=== PATIENT | female | born 1970 | race African-American/Black ===

== ENCOUNTER 2019-02-05 09:45 | Emergency (ER) | payer OTHER ==
[~2019-02-05] VITALS: Ht 167.6 cm; Wt 118.0 kg
[2019-02-05] MEDS ORDERED: MORPHINE SULFATE 4 MG/ML CPJ (NOT FOR IM USE) IV STA (11:03)
[2019-02-05] MEDS ORDERED: ONDANSETRON HCL 4MG/2ML INJ IV STA (11:03)
[2019-02-05] MEDS ORDERED: SODIUM CHLORIDE 0.9% 1,000 ML IV ONE (14:20)
[2019-02-05 14:35] LABS: BASOPHILS % 0.1 % (0.0-2.0); EOSINOPHILS % 0.1 % (0.0-5.0); HEMATOCRIT. 23.8 % (36.0-48.0); HEMOGLOBIN. 7.8 g/dL (12.0-16.0); LYMPHOCYTES % 9.3 % (20.0-50.0); MEAN CORPUSCULAR HEMOGLOBIN 29.6 pg (28.0-32.0); MONOCYTES % 6.4 % (2.0-8.0); NEUTROPHILS % 84.1 % (40.0-76.0); PLATELET 333 x1000/uL (130-400); RED BLOOD CELL COUNT 2.64 mill/uL (4.2-5.4); RED CELL DISTRIBUTION WIDTH 21.9 % (11.6-14.6)
[2019-02-05 14:38] LABS: INR 1.1; PROTHROMBIN TIME 11.4 sec (9.6-11.0)
[2019-02-05 14:39] LABS: CHLORIDE 101 mEq/L (98-107)
[2019-02-05 14:41] LABS: HCG SCREEN NEGATIVE
[2019-02-05 14:51] LABS: CLARITY URINE CLOUDY (CLEAR); COLOR URINE YELLOW (YELLOW); KETONES URINE NEGATIVE (NEGATIVE); LEUKOCYTE ESTERASE URINE 3+ (NEGATIVE); NITRITE URINE NEGATIVE (NEGATIVE); OCCULT BLOOD URINE 1+ (NEGATIVE); PROTEIN URINE 1+ (NEGATIVE); SPECIFIC GRAVITY URINE 1.014 (1.005-1.030)
[2019-02-05] MEDS ORDERED: CEFTRIAXONE 1 G PREMIX 50 ML IV ONE (15:15)
[2019-02-05] MEDS ORDERED: MORPHINE SULFATE 4 MG/ML CPJ (NOT FOR IM USE) IV NR (15:45)
[2019-02-05] MEDS ORDERED: KETOROLAC 30MG/ML VIAL IV ONE (18:30)
[2019-02-05 19:15] VITALS: BP 110/53
== END 2019-02-05 19:30 | disposition home or self-care (01) ==
LOC: ER 09:45
DX: R10.11 Right upper quadrant pain (principal); R11.0 Nausea; R06.02 Shortness of breath
CPT/HCPCS: 36415; 74176; 76705; 80053; 81003; 81025; 83690; 84703; 85025; 85610; 87086; 96365; 96375; 99284; J0696; J1885; J2270; J7030; Z7610

== ENCOUNTER 2019-02-08 21:14 | Inpatient (IN) | payer OTHER ==
[~2019-02-08] VITALS: Ht 167.6 cm; Wt 158.8 kg
[2019-02-08] MEDS ORDERED: ONDANSETRON HCL 4MG/2ML INJ IV STA (22:57)
[2019-02-08] MEDS ORDERED: VISCOUS LIDOCAINE 2% 15 ML UDC PO STA (22:57)
[2019-02-08] MEDS ORDERED: MAGNESIUM/ALUMINUM HYDROXIDE/SIMETHICONE 30ML UDC PO STA (22:57)
[2019-02-08 23:51] LABS: CHLORIDE 102 mEq/L (98-107)
[2019-02-08 23:57] LABS: BASOPHILS % 0.3 % (0.0-2.0); EOSINOPHILS % 0.3 % (0.0-5.0); HEMATOCRIT. 22.9 % (36.0-48.0); HEMOGLOBIN. 7.5 g/dL (12.0-16.0); LYMPHOCYTES % 17.7 % (20.0-50.0); MEAN CORPUSCULAR HEMOGLOBIN 29.2 pg (28.0-32.0); MEAN CORPUSCULAR VOLUME 89.2 fL (81.0-99.0); MONOCYTES % 7.8 % (2.0-8.0); NEUTROPHILS % 73.9 % (40.0-76.0); PLATELET 381 x1000/uL (130-400); RED BLOOD CELL COUNT 2.57 mill/uL (4.2-5.4); RED CELL DISTRIBUTION WIDTH 21.7 % (11.6-14.6)
[2019-02-09] MEDS ORDERED: SODIUM CHLORIDE 0.9% 1,000 ML IV ONE (00:15)
[2019-02-09] MEDS ORDERED: ACETAMINOPHEN 500MG TABLET PO ONE (02:00)
[2019-02-09] MEDS: SODIUM CHLORIDE 0.9% 1,000 ML IV SCH ×2 (08:45→21:24)
[2019-02-09] MEDS ORDERED: CEFTRIAXONE 1 G PREMIX 50 ML IV SCH (09:00)
[2019-02-09] MEDS: ACETAMINOPHEN 325MG TABLET PO PRN ×2 (09:45→14:20)
[2019-02-09] MEDS: ONDANSETRON HCL 4MG/2ML INJ IV PRN (09:45)
[2019-02-09 10:00] LABS: CLARITY URINE CLOUDY (CLEAR); COLOR URINE RED (YELLOW); KETONES URINE NEGATIVE (NEGATIVE); LEUKOCYTE ESTERASE URINE 2+ (NEGATIVE); NITRITE URINE NEGATIVE (NEGATIVE); OCCULT BLOOD URINE 3+ (NEGATIVE); PH URINE 5.5 (4.5-8.0); PROTEIN URINE 2+ (NEGATIVE); SPECIFIC GRAVITY URINE 1.013 (1.005-1.030); UROBILINOGEN URINE 0.2 E.U./dL (0.2-1.0)
[2019-02-09 10:30] VITALS: BP 141/85
[2019-02-09 11:30] LABS: TOTAL IRON BINDING CAPACITY 185 ug/dL (250-450)
[2019-02-09 12:00] VITALS: BP 124/69
[2019-02-09 15:37] VITALS: BP 141/84
[2019-02-09 16:00] VITALS: BP 138/87
[2019-02-09] MEDS ORDERED: TRAM150C25 PO (18:47)
[2019-02-09] MEDS ORDERED: CIPR500S3 PO (18:47)
[2019-02-09] MEDS ORDERED: IBUP-2028 MT (18:47)
[2019-02-09 20:00] VITALS: BP 112/78
[2019-02-10] VITALS: BP 128/77
[2019-02-10 04:00] VITALS: BP 128/62
[2019-02-10] MEDS: ACETAMINOPHEN 325MG TABLET PO PRN ×3 (04:31→19:31)
[2019-02-10 08:00] VITALS: BP 149/90
[2019-02-10 08:14] LABS: BASOPHILS % 0.5 % (0.0-2.0); EOSINOPHILS % 0.4 % (0.0-5.0); HEMATOCRIT. 21.4 % (36.0-48.0); LYMPHOCYTES % 25.7 % (20.0-50.0); MEAN CORPUSCULAR HEMOGLOBIN 29.5 pg (28.0-32.0); MEAN PLATELET VOLUME 6.9 fl (7.4-10.4); MONOCYTES % 10.5 % (2.0-8.0); NEUTROPHILS % 62.9 % (40.0-76.0); PLATELET 344 x1000/uL (130-400); RED BLOOD CELL COUNT 2.38 mill/uL (4.2-5.4); RED CELL DISTRIBUTION WIDTH 21.3 % (11.6-14.6)
[2019-02-10] MEDS: CEFTRIAXONE 1 G PREMIX 50 ML IV SCH (08:21)
[2019-02-10] MEDS: DOCUSATE SODIUM 100MG CAPSULE PO SCH ×2 (09:32→18:06)
[2019-02-10] MEDS: SODIUM CHLORIDE 0.9% 1,000 ML IV SCH (11:40)
[2019-02-10 12:00] VITALS: BP 150/87
[2019-02-10] MEDS: FERROUS SULFATE 325MG TABLET PO SCH ×2 (12:14→18:06)
[2019-02-10 16:00] VITALS: BP 125/75
[2019-02-10 20:00] VITALS: BP 147/90
[2019-02-11] VITALS (9 sets, daily range): BP systolic 122–151; BP diastolic 68–91
[2019-02-11] MEDS: SODIUM CHLORIDE 0.9% 1,000 ML IV SCH ×2 (02:19→15:02)
[2019-02-11] MEDS: ACETAMINOPHEN 325MG TABLET PO PRN (04:38)
[2019-02-11 07:24] LABS: BASOPHILS % 0.6 % (0.0-2.0); EOSINOPHILS % 0.7 % (0.0-5.0); HEMATOCRIT. 23.2 % (36.0-48.0); HEMOGLOBIN. 7.6 g/dL (12.0-16.0); LYMPHOCYTES % 26.3 % (20.0-50.0); MEAN CORPUSCULAR HEMOGLOBIN 29.1 pg (28.0-32.0); MEAN CORPUSCULAR VOLUME 89.4 fL (81.0-99.0); MEAN PLATELET VOLUME 6.8 fl (7.4-10.4); MONOCYTES % 11.2 % (2.0-8.0); NEUTROPHILS % 61.2 % (40.0-76.0); PLATELET 339 x1000/uL (130-400); RED BLOOD CELL COUNT 2.59 mill/uL (4.2-5.4); RED CELL DISTRIBUTION WIDTH 20.3 % (11.6-14.6)
[2019-02-11] MEDS: CEFTRIAXONE 1 G PREMIX 50 ML IV SCH (09:44)
[2019-02-11] MEDS: FERROUS SULFATE 325MG TABLET PO SCH ×3 (09:45→18:30)
[2019-02-11] MEDS: ONDANSETRON HCL 4MG/2ML INJ IV PRN (09:45)
[2019-02-11] MEDS: DOCUSATE SODIUM 100MG CAPSULE PO SCH ×2 (09:45→18:30)
[2019-02-11] MEDS ORDERED: MORPHINE SULFATE 2 MG/ML CPJ (NOT FOR IM USE) IV PRN (14:00)
[2019-02-11 18:41] LABS: BASOPHILS % 0.6 % (0.0-2.0); EOSINOPHILS % 0.7 % (0.0-5.0); HEMATOCRIT. 23.7 % (36.0-48.0); HEMOGLOBIN. 7.8 g/dL (12.0-16.0); MEAN CORPUSCULAR HEMOGLOBIN 29.5 pg (28.0-32.0); MEAN CORPUSCULAR VOLUME 90.1 fL (81.0-99.0); MEAN PLATELET VOLUME 7.3 fl (7.4-10.4); MONOCYTES % 10.8 % (2.0-8.0); NEUTROPHILS % 62.9 % (40.0-76.0); PLATELET 405 x1000/uL (130-400); RED BLOOD CELL COUNT 2.63 mill/uL (4.2-5.4); RED CELL DISTRIBUTION WIDTH 20.3 % (11.6-14.6)
[2019-02-12] VITALS: BP 147/82
[2019-02-12] MEDS: ACETAMINOPHEN 325MG TABLET PO PRN ×2 (02:20→13:48)
[2019-02-12 04:00] VITALS: BP 136/80
[2019-02-12 08:00] VITALS: BP 154/98
[2019-02-12] MEDS: DOCUSATE SODIUM 100MG CAPSULE PO SCH (08:35)
[2019-02-12] MEDS: FERROUS SULFATE 325MG TABLET PO SCH ×2 (08:35→13:35)
[2019-02-12] MEDS: CEFTRIAXONE 1 G PREMIX 50 ML IV SCH (08:35)
[2019-02-12 11:21] LABS: BASOPHILS % 0.6 % (0.0-2.0); EOSINOPHILS % 0.7 % (0.0-5.0); HEMATOCRIT. 23.9 % (36.0-48.0); HEMOGLOBIN. 7.8 g/dL (12.0-16.0); LYMPHOCYTES % 28.2 % (20.0-50.0); MEAN CORPUSCULAR HEMOGLOBIN 29.4 pg (28.0-32.0); MEAN CORPUSCULAR VOLUME 90.2 fL (81.0-99.0); MEAN PLATELET VOLUME 7.7 fl (7.4-10.4); MONOCYTES % 11.8 % (2.0-8.0); NEUTROPHILS % 58.7 % (40.0-76.0); PLATELET 402 x1000/uL (130-400); RED BLOOD CELL COUNT 2.65 mill/uL (4.2-5.4); RED CELL DISTRIBUTION WIDTH 20.6 % (11.6-14.6)
[2019-02-12 12:00] VITALS: BP 129/72
[2019-02-12] MEDS ORDERED: HYDR-4001 MT (12:31)
[2019-02-12] MEDS ORDERED: ONDA4TAB5 MT (12:31)
[2019-02-12 13:21] VITALS: BP 129/72
== END 2019-02-12 16:18 | disposition home or self-care (01) | DRG 463 ==
LOC: ER 21:14 → 6EST 02-09 03:06 → ENRESERV 02-09 08:05
PROVIDERS: ADMIT Internal Medicine; ATTEND Internal Medicine
PROC: 30233N1 Transfusion of Nonautologous Red Blood Cells into Peripheral Vein, Percutaneous Approach (ICD-10-PCS; principal; 2019-02-11)
DX: N39.0 Urinary tract infection, site not specified (principal); N17.0 Acute kidney failure with tubular necrosis; E43 Unspecified severe protein-calorie malnutrition; E66.01 Morbid (severe) obesity due to excess calories; I31.3 Pericardial effusion (noninflammatory); Z68.43 Body mass index [BMI] 50.0-59.9, adult; R16.0 Hepatomegaly, not elsewhere classified; D64.9 Anemia, unspecified; I10 Essential (primary) hypertension; D25.9 Leiomyoma of uterus, unspecified; E66.9 Obesity, unspecified; Z98.891 History of uterine scar from previous surgery; Z71.3 Dietary counseling and surveillance
CPT/HCPCS: 36415; 76830; 76856; 80048; 81003; 82728; 83540; 83550; 86850; 86900; 86920; 93306; J0696; J2270; J2405; P9016

== ENCOUNTER 2019-11-07 21:36 | Inpatient (IN) | payer MEDICAID ==
[~2019-11-07] VITALS: Ht 165.1 cm; Wt 122.7 kg
[~2019-11-07 21:36] MED LIST: ATOR-2 PO; HYDR-4001 MT; ONDA4TAB5 MT; PANT40TA4 PO
[2019-11-07] MEDS ORDERED: ONDANSETRON HCL 4MG/2ML INJ IV STA (22:09)
[2019-11-07] MEDS ORDERED: SODIUM CHLORIDE 0.9% 1,000 ML IV ONE (22:09)
[2019-11-08 00:03] LABS: CHLORIDE 95 mEq/L (98-107)
[2019-11-08 00:06] LABS: BASOPHILS % 0.6 % (0.0-2.0); EOSINOPHILS % 0.5 % (0.0-5.0); HEMOGLOBIN. 8.6 g/dL (12.0-16.0); MEAN CORPUSCULAR HEMOGLOBIN 26.9 pg (28.0-32.0); MEAN CORPUSCULAR VOLUME 84.3 fL (81.0-99.0); MEAN PLATELET VOLUME 8.9 fl (7.4-10.4); NEUTROPHILS % 68.9 % (40.0-76.0); PLATELET 452 x1000/uL (130-400); RED BLOOD CELL COUNT 3.21 mill/uL (4.2-5.4)
[2019-11-08 00:09] LABS: ETHANOL BLOOD < 10 mg/dL
[2019-11-08 00:10] LABS: INR 1.1; PROTHROMBIN TIME 11.6 sec (9.6-11.0)
[2019-11-08 00:11] LABS: HCG SCREEN NEGATIVE
[2019-11-08] MEDS ORDERED: VANCOMYCIN 500 MG PREMIX 100 ML IV SCH (01:30)
[2019-11-08] MEDS ORDERED: AZITHROMYCIN 500 MG in DEXT 5% WATER 250 ML IV SCH (01:30)
[2019-11-08] MEDS ORDERED: PIPERACILLIN/TAZOBACTAM 2.25 G in DEXTROSE 5% WATER 50 ML IV ONE (01:30)
[2019-11-08 03:21] LABS: CLARITY URINE TURBID (CLEAR); COLOR URINE DARK YELLOW (YELLOW); KETONES URINE TRACE (NEGATIVE); LEUKOCYTE ESTERASE URINE 1+ (NEGATIVE); NITRITE URINE NEGATIVE (NEGATIVE); OCCULT BLOOD URINE 3+ (NEGATIVE); PROTEIN URINE 1+ (NEGATIVE); SPECIFIC GRAVITY URINE 1.023 (1.005-1.030)
[2019-11-08] MEDS ORDERED: FUROSEMIDE 40MG/4ML VIAL IVP ONE (04:30)
[2019-11-08 08:40] VITALS: BP 122/74
[2019-11-08] MEDS ORDERED: COLC0.6C PO (10:12)
[2019-11-08 12:00] VITALS: BP 95/58
[2019-11-08] MEDS: LEVOFLOXACIN 500MG PREMIX 100 ML IV SCH ×2 (12:00→18:02)
[2019-11-08] MEDS ORDERED: ONDANSETRON HCL 4MG/2ML INJ IV PRN (12:45)
[2019-11-08] MEDS: IPRATROPIUM/ALBUTEROL 0.5-3(2.5)MG/3ML NEB HHN SCH ×2 (15:40→18:00)
[2019-11-08 16:00] VITALS: BP 110/55
[2019-11-08] MEDS: SODIUM CHLORIDE 0.45% 1,000 ML IV SCH (17:53)
[2019-11-08] MEDS ORDERED: CLONIDINE 0.1MG TABLET PO PRN (18:45)
[2019-11-08] MEDS ORDERED: DOCUSATE SODIUM 100MG CAPSULE PO PRN (18:45)
[2019-11-08] MEDS ORDERED: LORAZEPAM 2MG/ML CPJ IV PRN (18:45)
[2019-11-08] MEDS ORDERED: HYDRALAZINE 20MG/ML VIAL IV PRN (18:45)
[2019-11-08] MEDS ORDERED: MORPHINE SULFATE 2 MG/ML CPJ (NOT FOR IM USE) IV PRN (18:45)
[2019-11-08] MEDS ORDERED: MAGNESIUM/ALUMINUM HYDROXIDE/SIMETHICONE 30ML UDC PO PRN (18:45)
[2019-11-08] MEDS ORDERED: GUAIFENESIN 200MG/10ML SUGAR FREE UDC PO PRN (18:45)
[2019-11-08] MEDS ORDERED: DIPHENHYDRAMINE 50MG/ML VIAL IV PRN (18:45)
[2019-11-08] MEDS ORDERED: HYDROCODONE/ACETAMINOPHEN 10/325MG TABLET PO PRN (18:45)
[2019-11-08 20:00] VITALS: BP 97/48
[2019-11-08] MEDS: ENOXAPARIN 40MG/0.4ML SYR SUBCUT SCH (21:01)
[2019-11-08] MEDS: ACETAMINOPHEN 325MG TABLET PO PRN (21:02)
[2019-11-08 23:46] LABS: CREATINE KINASE 17 IU/L (26-192)
[2019-11-08 23:47] LABS: CREATINE KINASE MB FRACTION < 1.0 ng/mL (0.5-3.6)
[2019-11-09] VITALS (8 sets, daily range): BP systolic 88–120; BP diastolic 40–74
[2019-11-09 07:41] LABS: CHLORIDE 95 mEq/L (98-107)
[2019-11-09 07:54] LABS: CREATINE KINASE 18 IU/L (26-192)
[2019-11-09 07:58] LABS: CREATINE KINASE MB FRACTION < 1.0 ng/mL (0.5-3.6)
[2019-11-09 07:59] LABS: BASOPHILS % 0.6 % (0.0-2.0); EOSINOPHILS % 0.5 % (0.0-5.0); HEMATOCRIT. 25.1 % (36.0-48.0); LYMPHOCYTES % 14.7 % (20.0-50.0); MEAN CORPUSCULAR VOLUME 84.2 fL (81.0-99.0); MEAN PLATELET VOLUME 8.7 fl (7.4-10.4); MONOCYTES % 9.6 % (2.0-8.0); NEUTROPHILS % 74.6 % (40.0-76.0); PLATELET 416 x1000/uL (130-400); RED BLOOD CELL COUNT 2.98 mill/uL (4.2-5.4); RED CELL DISTRIBUTION WIDTH 21.9 % (11.6-14.6)
[2019-11-09] MEDS: IPRATROPIUM/ALBUTEROL 0.5-3(2.5)MG/3ML NEB HHN SCH ×3 (08:18→20:48)
[2019-11-09] MEDS: SODIUM CHLORIDE 0.45% 1,000 ML IV SCH ×2 (08:19→20:29)
[2019-11-09] MEDS: ACETAMINOPHEN 325MG TABLET PO PRN ×2 (08:19→17:10)
[2019-11-09] MEDS: LEVOFLOXACIN 250MG PREMIX 50 ML IV SCH (11:38)
[2019-11-09] MEDS: ENOXAPARIN 40MG/0.4ML SYR SUBCUT SCH (20:28)
[2019-11-10] VITALS (9 sets, daily range): BP systolic 101–130; BP diastolic 42–100
[2019-11-10] MEDS: ACETAMINOPHEN 325MG TABLET PO PRN (01:17)
[2019-11-10] MEDS: IPRATROPIUM/ALBUTEROL 0.5-3(2.5)MG/3ML NEB HHN SCH ×3 (02:41→12:49)
[2019-11-10] MEDS: SODIUM CHLORIDE 0.45% 1,000 ML IV SCH ×3 (04:24→22:14)
[2019-11-10 07:20] LABS: BASOPHILS % 0.4 % (0.0-2.0); EOSINOPHILS % 0.6 % (0.0-5.0); HEMATOCRIT. 23.4 % (36.0-48.0); HEMOGLOBIN. 7.4 g/dL (12.0-16.0); LYMPHOCYTES % 14.2 % (20.0-50.0); MEAN CORPUSCULAR HEMOGLOBIN 26.4 pg (28.0-32.0); MEAN CORPUSCULAR VOLUME 83.4 fL (81.0-99.0); MEAN PLATELET VOLUME 8.5 fl (7.4-10.4); MONOCYTES % 8.9 % (2.0-8.0); NEUTROPHILS % 75.9 % (40.0-76.0); PLATELET 386 x1000/uL (130-400); RED BLOOD CELL COUNT 2.81 mill/uL (4.2-5.4); RED CELL DISTRIBUTION WIDTH 21.2 % (11.6-14.6)
[2019-11-10 07:43] LABS: PHOSPHORUS 6.5 mg/dL (2.5-4.9)
[2019-11-10 07:49] LABS: HEPATITIS B SURFACE ANTIGEN NEGATIVE
[2019-11-10] MEDS ORDERED: MAGNESIUM 4 G PREMIX 100 ML IV SCH (09:00)
[2019-11-10] MEDS: LEVOFLOXACIN 250MG PREMIX 50 ML IV SCH (13:49)
[2019-11-10] MEDS: METHYLPREDNISOLONE SOD SUCC 125 MG/2 ML VIAL IV SCH ×2 (14:06→22:14)
[2019-11-10] MEDS: ENOXAPARIN 40MG/0.4ML SYR SUBCUT SCH (19:57)
[2019-11-11] VITALS (12 sets, daily range): BP systolic 102–131; BP diastolic 56–90
[2019-11-11] MEDS: IPRATROPIUM/ALBUTEROL 0.5-3(2.5)MG/3ML NEB HHN SCH ×6 (01:18→21:16)
[2019-11-11] MEDS: SODIUM CHLORIDE 0.45% 1,000 ML IV SCH ×4 (01:27→23:46)
[2019-11-11] MEDS: METHYLPREDNISOLONE SOD SUCC 125 MG/2 ML VIAL IV SCH ×3 (06:09→21:17)
[2019-11-11 12:11] LABS: HEMOGLOBIN 8.7 g/dL (12.0-16.0); PLATELET 471 x1000/uL (130-400); RED BLOOD CELL COUNT 3.22 mill/uL (4.2-5.4); RED CELL DISTRIBUTION WIDTH 21.2 % (11.6-14.6)
[2019-11-11] MEDS ORDERED: AMIODARONE HCL 50MG/ML 3ML VIAL IV ONE (14:45)
[2019-11-11] MEDS ORDERED: AMIODARONE HCL 150 MG in DEXT 5% WATER 97 ML IV ONE (15:00)
[2019-11-11] MEDS ORDERED: AMIODARONE HCL 900 MG in DEXT 5% WATER 482 ML IV PRN ×2 (15:00→15:30)
[2019-11-11] MEDS ORDERED: AMIODARONE HCL 150 MG in DEXT 5% WATER 100 ML IV SCH (16:00)
[2019-11-12] VITALS (11 sets, daily range): BP systolic 101–120; BP diastolic 62–76
[2019-11-12] MEDS: METHYLPREDNISOLONE SOD SUCC 125 MG/2 ML VIAL IV SCH ×3 (04:58→21:32)
[2019-11-12 07:34] LABS: HEMATOCRIT. 24.3 % (36.0-48.0); HEMOGLOBIN. 7.9 g/dL (12.0-16.0); MEAN CORPUSCULAR HEMOGLOBIN 26.9 pg (28.0-32.0); MEAN CORPUSCULAR VOLUME 82.6 fL (81.0-99.0); MEAN PLATELET VOLUME 8.2 fl (7.4-10.4); PLATELET 428 x1000/uL (130-400); RED BLOOD CELL COUNT 2.94 mill/uL (4.2-5.4); RED CELL DISTRIBUTION WIDTH 21.1 % (11.6-14.6)
[2019-11-12] MEDS: SODIUM CHLORIDE 0.45% 1,000 ML IV SCH (08:40)
[2019-11-12] MEDS: IPRATROPIUM/ALBUTEROL 0.5-3(2.5)MG/3ML NEB HHN SCH ×3 (09:08→19:51)
[2019-11-12 09:10] LABS: A/G RATIO 0.4 (0.7-1.7); ALBUMIN 2.3 g/dL (2.9-4.4); ALPHA-1-GLOBULIN 0.5 g/dL (0.0-0.4); GAMMA GLOBULINS 3.8 g/dL (0.4-1.8); GLOBULIN TOTAL 6.3 g/dL (2.2-3.9); M-SPIKE 3.3 g/dL (Not Observed); TOTAL PROTEIN SERUM 8.6 g/dL (6.0-8.5)
[2019-11-12] MEDS ORDERED: LEVOFLOXACIN 250MG PREMIX 50 ML IV SCH (11:00)
[2019-11-12] MEDS: SODIUM CHLORIDE 0.9% 1,000 ML IV SCH (11:54)
[2019-11-12 12:15] LABS: PLATELET ESTIMATE SLIGHTLY INCREASED
[2019-11-12] MEDS ORDERED: LEVOFLOXACIN 250MG TABLET PO SCH (13:00)
[2019-11-12 13:11] LABS: ATYPICAL P-ANCA <1:20 titer (Neg:<1:20); CYTOPLASMIC C-ANCA <1:20 titer (Neg:<1:20); PERINUCLEAR P-ANCA <1:20 titer (Neg:<1:20)
[2019-11-12] MEDS ORDERED: AMIODARONE HCL 900 MG in DEXT 5% WATER 482 ML IV PRN (17:30)
[2019-11-12 19:07] LABS: ANTI-NUCLEAR ANTIBODIES DIRECT Positive (Negative)
[2019-11-13] VITALS (25 sets, daily range): BP systolic 100–135; BP diastolic 52–75
[2019-11-13] MEDS: SODIUM CHLORIDE 0.9% 1,000 ML IV SCH ×3 (00:25→19:48)
[2019-11-13] MEDS: IPRATROPIUM/ALBUTEROL 0.5-3(2.5)MG/3ML NEB HHN SCH ×4 (02:03→21:06)
[2019-11-13] MEDS: METHYLPREDNISOLONE SOD SUCC 125 MG/2 ML VIAL IV SCH ×3 (05:47→21:28)
[2019-11-13 06:40] LABS: HEMATOCRIT. 24.4 % (36.0-48.0); HEMOGLOBIN. 7.9 g/dL (12.0-16.0); MEAN CORPUSCULAR HEMOGLOBIN 26.8 pg (28.0-32.0); MEAN PLATELET VOLUME 8.2 fl (7.4-10.4); PLATELET 375 x1000/uL (130-400); RED BLOOD CELL COUNT 2.94 mill/uL (4.2-5.4); RED CELL DISTRIBUTION WIDTH 21.6 % (11.6-14.6)
[2019-11-13] MEDS ORDERED: FENTANYL CITRATE/PF 50MCG/ML 2ML VIAL ONE (08:37)
[2019-11-13] MEDS ORDERED: LIDOCAINE HCL 1% 20ML VIAL (Pyxis) INJ ONE (08:38)
[2019-11-13] MEDS ORDERED: SODIUM BICARBONATE 4% (2.4MEQ) 5ML VIAL IV ONE (08:38)
[2019-11-13] MEDS ORDERED: FENTANYL CITRATE/PF 50MCG/ML 2ML VIAL IV ONE (09:45)
[2019-11-13 12:07] LABS: NUCLEATED RED BLOOD CELLS 2 /100 WBC; PLATELET ESTIMATE NORMAL
[2019-11-13 12:47] LABS: HEMATOCRIT 26.9 % (36.0-48.0); HEMOGLOBIN 8.6 g/dL (12.0-16.0)
[2019-11-13 13:07] LABS: ANTI-MYELOPEROXIDASE AB < 9.0 U/mL (0.0-9.0); ANTI-PROTEINASE 3 ABS 6.3 U/mL (0.0-3.5)
[2019-11-14] VITALS (9 sets, daily range): BP systolic 94–143; BP diastolic 61–95
[2019-11-14] MEDS: IPRATROPIUM/ALBUTEROL 0.5-3(2.5)MG/3ML NEB HHN SCH ×4 (02:13→16:03)
[2019-11-14] MEDS: METHYLPREDNISOLONE SOD SUCC 125 MG/2 ML VIAL IV SCH (05:52)
[2019-11-14 07:06] LABS: BASOPHILS % 0.1 % (0.0-2.0); HEMATOCRIT. 27.9 % (36.0-48.0); HEMOGLOBIN. 8.8 g/dL (12.0-16.0); LYMPHOCYTES % 8.7 % (20.0-50.0); MEAN CORPUSCULAR HEMOGLOBIN 26.5 pg (28.0-32.0); MEAN CORPUSCULAR VOLUME 83.6 fL (81.0-99.0); MEAN PLATELET VOLUME 8.3 fl (7.4-10.4); MONOCYTES % 4.1 % (2.0-8.0); NEUTROPHILS % 87.1 % (40.0-76.0); PLATELET 433 x1000/uL (130-400); RED BLOOD CELL COUNT 3.34 mill/uL (4.2-5.4); RED CELL DISTRIBUTION WIDTH 21.6 % (11.6-14.6)
[2019-11-14 07:42] LABS: PHOSPHORUS 4.1 mg/dL (2.5-4.9)
[2019-11-14] MEDS: SODIUM CHLORIDE 0.9% 1,000 ML IV SCH (10:10)
[2019-11-14] MEDS ORDERED: LEVOFLOXACIN 250MG TABLET PO SCH (13:00)
== END 2019-11-14 16:59 | disposition home or self-care (01) | DRG 469 ==
LOC: ER 21:36 → MICUSO 22:50 → EDBEDREQTM 22:55 → EDBEDREQ 22:55 → 5WST 11-08 07:36 → 3WST 11-09 10:48
PROVIDERS: ADMIT Internal Medicine; ATTEND Internal Medicine
PROC: 0TB13ZX Excision of Left Kidney, Percutaneous Approach, Diagnostic (ICD-10-PCS; principal; 2019-11-13)
DX: N17.0 Acute kidney failure with tubular necrosis (principal); J96.21 Acute and chronic respiratory failure with hypoxia; E43 Unspecified severe protein-calorie malnutrition; G93.41 Metabolic encephalopathy; I50.32 Chronic diastolic (congestive) heart failure; I48.92 Unspecified atrial flutter; I31.3 Pericardial effusion (noninflammatory); I13.0 Hypertensive heart and chronic kidney disease with heart failure and stage 1 through stage 4 chronic kidney disease, or unspecified chronic kidney disease; R31.29 Other microscopic hematuria; E78.5 Hyperlipidemia, unspecified; D64.9 Anemia, unspecified; D25.9 Leiomyoma of uterus, unspecified; E66.9 Obesity, unspecified; I42.9 Cardiomyopathy, unspecified; I27.20 Pulmonary hypertension, unspecified; Z79.01 Long term (current) use of anticoagulants; Z79.899 Other long term (current) drug therapy; Z68.42 Body mass index [BMI] 45.0-49.9, adult; Z20.828 Contact with and (suspected) exposure to other viral communicable diseases
CPT/HCPCS: 36415; 71045; 71250; 76770; 76942; 78580; 80048; 80053; 80061; 80320; 81003; 82533; 82550; 82553; 82575; 83520; 83605; 83735; 83880; 83930; 83935; 84100; 84155; 84165; 84443; 84484; 84703; 85014; 85018; 85025; 85027; 85651; 86038; 86060; 86160; 86256; 86803; 87340; 87635; 88305; 88346; 88348; 93005; 93306; 93970; 94640; 99285; J0282; J0456; J1650; J1940; J1956; J2405; J2543; J2930; J3010; J3370; J3475; J3490; J7030; J7060; G0480

== ENCOUNTER 2021-04-27 20:11 | Emergency (ER) | payer MEDICAID ==
[~2021-04-27] VITALS: Ht 165.1 cm; Wt 145.0 kg
[~2021-04-27 20:11] MED LIST changes: +COLC0.6C PO; +FURO-151 PO; -PANT40TA4 PO; +PANT40TA51 PO; +TOPXL5 PO
[2021-04-27 22:30] LABS: BASOPHILS % 0.5 % (0.0-2.0); CHLORIDE 103 mEq/L (98-107); EOSINOPHILS % 0.4 % (0.0-5.0); HEMATOCRIT. 25.2 % (36.0-48.0); HEMOGLOBIN. 8.4 g/dL (12.0-16.0); LYMPHOCYTES % 37.7 % (20.0-50.0); MEAN CORPUSCULAR HEMOGLOBIN 30.6 pg (28.0-32.0); MEAN CORPUSCULAR VOLUME 91.9 fL (81.0-99.0); MEAN PLATELET VOLUME 7.1 fl (7.4-10.4); NEUTROPHILS % 53.4 % (40.0-76.0); PLATELET 298 x1000/uL (130-400); RED BLOOD CELL COUNT 2.74 mill/uL (4.2-5.4); RED CELL DISTRIBUTION WIDTH 18.2 % (11.6-14.6)
[2021-04-28] MEDS ORDERED: FUROSEMIDE 40MG/4ML VIAL IV ONE (01:45)
[2021-04-28] MEDS ORDERED: ASPIRIN 81MG TABLET PO ONE (01:45)
[2021-04-28 08:00] VITALS: BP 98/64
== END 2021-04-28 08:52 | disposition short-term general hospital (02) ==
LOC: ER 20:11
DX: I50.9 Heart failure, unspecified (principal); E78.00 Pure hypercholesterolemia, unspecified; Z20.822 Contact with and (suspected) exposure to COVID-19; Z98.890 Other specified postprocedural states
CPT/HCPCS: 36415; 71045; 74176; 80053; 83690; 83880; 84484; 85025; 87426; 93005; 96372; 99285; J1940

== ENCOUNTER 2021-10-06 18:47 | Inpatient (IN) | payer MEDICAID, OTHER ==
[~2021-10-06] VITALS: Ht 165.1 cm; Wt 119.0 kg
[2021-10-06 22:02] LABS: CHLORIDE 103 mEq/L (98-107); INR 1.1; PROTHROMBIN TIME 11.8 sec (9.6-11.0)
[2021-10-06 22:06] LABS: MEAN CORPUSCULAR HEMOGLOBIN 29.9 pg (28.0-32.0); MEAN CORPUSCULAR VOLUME 89.5 fL (81.0-99.0); MEAN PLATELET VOLUME 7.7 fl (7.4-10.4); PLATELET 328 x1000/uL (130-400); RED BLOOD CELL COUNT 2.15 mill/uL (4.2-5.4); RED CELL DISTRIBUTION WIDTH 21.9 % (11.6-14.6)
[2021-10-06 22:13] LABS: HEMATOCRIT. 19.2 % (36.0-48.0); HEMOGLOBIN. 6.4 g/dL (12.0-16.0)
[2021-10-06 22:31] LABS: PLATELET ESTIMATE NORMAL
[2021-10-07] MEDS ORDERED: ACETAMINOPHEN 325MG TABLET PO ONE (00:15)
[2021-10-07] MEDS ORDERED: ONDANSETRON HCL 4MG/2ML INJ IV ONE (00:15)
[2021-10-07 01:45] VITALS: BP 115/56
[2021-10-07] MEDS ORDERED: ONDANSETRON HCL 4MG/2ML INJ IV PRN (09:45)
[2021-10-07] MEDS ORDERED: IPRATROPIUM/ALBUTEROL 0.5-3(2.5)MG/3ML NEB HHN PRN (09:45)
[2021-10-07] MEDS ORDERED: DIPHENHYDRAMINE 50MG/ML VIAL IV PRN (09:45)
[2021-10-07] MEDS ORDERED: ACETAMINOPHEN 325MG TABLET PO PRN (09:45)
[2021-10-07] MEDS ORDERED: CLONIDINE 0.1MG TABLET PO PRN (09:45)
== END 2021-10-07 01:45 | disposition short-term general hospital (02) | DRG 663 ==
LOC: ER 18:47 → 6WST 22:27 → EDBEDREQTM 22:30 → EDBEDREQ 22:30 → ENRESERV 22:40 → MICUSO 23:58
PROVIDERS: ADMIT Internal Medicine; ATTEND Internal Medicine
PROC: 30233N1 Transfusion of Nonautologous Red Blood Cells into Peripheral Vein, Percutaneous Approach (ICD-10-PCS; principal; 2021-10-06)
DX: D50.0 Iron deficiency anemia secondary to blood loss (chronic) (principal); C90.00 Multiple myeloma not having achieved remission; I50.9 Heart failure, unspecified; E88.09 Other disorders of plasma-protein metabolism, not elsewhere classified; N18.5 Chronic kidney disease, stage 5; E78.00 Pure hypercholesterolemia, unspecified; Z98.891 History of uterine scar from previous surgery; Z79.899 Other long term (current) drug therapy
CPT/HCPCS: 36415; 71045; 80053; 83880; 85025; 86850; 86900; 86920; 93005; 99285; J2405; P9016

== ENCOUNTER 2021-12-03 18:39 | Emergency (ER) | payer MEDICAID, OTHER ==
[~2021-12-03] VITALS: Ht 167.6 cm; Wt 89.0 kg
[2021-12-03 23:32] LABS: CHLORIDE 100 mEq/L (98-107)
[2021-12-03 23:36] LABS: INR 1.2; PARTIAL THROMBOPLASTIN TIME < 21.0 sec (23.4-31.0); PROTHROMBIN TIME 12.4 sec (9.6-11.0)
[2021-12-04 00:08] LABS: MEAN CORPUSCULAR HEMOGLOBIN 29.6 pg (28.0-32.0); MEAN CORPUSCULAR VOLUME 89.2 fL (81.0-99.0); MEAN PLATELET VOLUME 7.7 fl (7.4-10.4); PLATELET 288 x1000/uL (130-400); RED BLOOD CELL COUNT 2.11 mill/uL (4.2-5.4); RED CELL DISTRIBUTION WIDTH 19.9 % (11.6-14.6)
[2021-12-04 00:13] LABS: HEMOGLOBIN. 6.3 g/dL (12.0-16.0)
[2021-12-04 00:14] LABS: HEMATOCRIT. 18.8 % (36.0-48.0)
[2021-12-04 02:09] LABS: ATYPICAL LYMPHOCYTES 1; NUCLEATED RED BLOOD CELLS 1 /100 WBC; PLATELET ESTIMATE NORMAL
[2021-12-04 04:00] VITALS: BP 127/56
== END 2021-12-04 05:30 | disposition short-term general hospital (02) ==
LOC: ER 18:39
DX: D63.1 Anemia in chronic kidney disease (principal); I13.2 Hypertensive heart and chronic kidney disease with heart failure and with stage 5 chronic kidney disease, or end stage renal disease; N18.6 End stage renal disease; I50.9 Heart failure, unspecified; E78.00 Pure hypercholesterolemia, unspecified; Z98.890 Other specified postprocedural states; Z99.2 Dependence on renal dialysis; Z20.822 Contact with and (suspected) exposure to COVID-19
CPT/HCPCS: 36415; 71045; 80053; 85025; 85610; 85730; 86850; 86900; 86901; 86920; 87426; 93005; 99285; Z7610; 36430; P9016

== ENCOUNTER 2022-03-18 11:32 | Inpatient (IN) | payer MEDICAID ==
[2022-03-18] VITALS (8 sets, daily range): BP systolic 97–126; BP diastolic 48–59
[~2022-03-18] VITALS: Ht 170.2 cm; Wt 90.7 kg
[2022-03-18 15:14] LABS: CHLORIDE 96 mEq/L (98-107)
[2022-03-18 15:30] LABS: ETHANOL BLOOD < 10 mg/dL
[2022-03-18 15:45] LABS: BASOPHILS % 1.2 % (0.0-2.0); EOSINOPHILS % 0.5 % (0.0-5.0); LYMPHOCYTES % 30.3 % (20.0-50.0); MEAN CORPUSCULAR HEMOGLOBIN 28.6 pg (28.0-32.0); MEAN CORPUSCULAR VOLUME 86.7 fL (81.0-99.0); MEAN PLATELET VOLUME 8.2 fl (7.4-10.4); MONOCYTES % 13.5 % (2.0-8.0); NEUTROPHILS % 54.5 % (40.0-76.0); PLATELET 296 x1000/uL (130-400); RED BLOOD CELL COUNT 2.01 mill/uL (4.2-5.4); RED CELL DISTRIBUTION WIDTH 17.7 % (11.6-14.6)
[2022-03-18 15:55] LABS: HEMATOCRIT. 17.4 % (36.0-48.0); HEMOGLOBIN. 5.8 g/dL (12.0-16.0)
[2022-03-18] MEDS ORDERED: DOCUSATE SODIUM 100MG CAPSULE PO PRN (17:15)
[2022-03-18] MEDS ORDERED: ACETAMINOPHEN 325MG TABLET PO PRN ×2 (17:15)
[2022-03-18] MEDS ORDERED: CLONIDINE 0.1MG TABLET PO PRN (17:15)
[2022-03-18] MEDS ORDERED: MAGNESIUM/ALUMINUM HYDROXIDE/SIMETHICONE 30ML UDC PO PRN (17:15)
[2022-03-18] MEDS ORDERED: IPRATROPIUM/ALBUTEROL 0.5-3(2.5)MG/3ML NEB HHN PRN (17:15)
[2022-03-18] MEDS ORDERED: ENOXAPARIN 40MG/0.4ML SYR SUBCUT SCH (18:00)
[2022-03-18] MEDS ORDERED: ENOXAPARIN 30MG/0.3ML SYR SUBCUT SCH (22:00)
[2022-03-18] MEDS: GUAIFENESIN 200MG/10ML SUGAR FREE UDC PO PRN (22:20)
[2022-03-18 22:38] LABS: HEPATITIS B SURFACE ANTIGEN NEGATIVE
[2022-03-19] MEDS ORDERED: IRON SUCROSE COMPLEX 100 MG/5 ML ML IV NR (02:00)
[2022-03-19] MEDS: EPOETIN ALFA-EPBX 4,000 UNIT/ML VIAL SUBCUT SCH (03:31)
[2022-03-19] MEDS: FUROSEMIDE 40MG TABLET PO SCH ×2 (09:33→16:47)
[2022-03-19] MEDS: PANTOPRAZOLE 40MG DR TABLET PO SCH (09:33)
[2022-03-19 09:51] LABS: CHLORIDE 102 mEq/L (98-107)
[2022-03-19 12:00] VITALS: BP 111/59
[2022-03-19] MEDS: GUAIFENESIN 200MG/10ML SUGAR FREE UDC PO PRN (13:18)
[2022-03-19 14:00] VITALS: BP 111/59
[2022-03-19 16:00] VITALS: BP 95/58
[2022-03-19 18:00] VITALS: BP 95/58
[2022-03-19 19:21] LABS: T4 FREE 1.08 ng/dL (0.76-1.46)
[2022-03-19 21:00] VITALS: BP 102/43
[2022-03-19] MEDS: GUAIFENESIN 600MG ER TABLET PO SCH (21:10)
[2022-03-20] VITALS (7 sets, daily range): BP systolic 93–120; BP diastolic 42–86
[2022-03-20] MEDS ORDERED: EPOETIN ALFA-EPBX 4,000 UNIT/ML VIAL SUBCUT NR
[2022-03-20] MEDS ORDERED: IRON SUCROSE COMPLEX 100 MG/5 ML ML IV NR (00:30)
[2022-03-20] MEDS: GUAIFENESIN 200MG/10ML SUGAR FREE UDC PO PRN (00:48)
[2022-03-20 07:29] LABS: BASOPHILS % 0.8 % (0.0-2.0); LYMPHOCYTES % 32.1 % (20.0-50.0); MEAN CORPUSCULAR HEMOGLOBIN 29.7 pg (28.0-32.0); MEAN CORPUSCULAR VOLUME 87.6 fL (81.0-99.0); MEAN PLATELET VOLUME 7.3 fl (7.4-10.4); MONOCYTES % 11.2 % (2.0-8.0); NEUTROPHILS % 54.9 % (40.0-76.0); PLATELET 236 x1000/uL (130-400); RED BLOOD CELL COUNT 2.13 mill/uL (4.2-5.4); RED CELL DISTRIBUTION WIDTH 16.5 % (11.6-14.6)
[2022-03-20 07:56] LABS: CHLORIDE 99 mEq/L (98-107)
[2022-03-20 08:13] LABS: HEMATOCRIT. 18.7 % (36.0-48.0); HEMOGLOBIN. 6.3 g/dL (12.0-16.0)
[2022-03-20] MEDS: GUAIFENESIN 600MG ER TABLET PO SCH ×2 (09:46→22:56)
[2022-03-20] MEDS: PANTOPRAZOLE 40MG DR TABLET PO SCH (09:46)
[2022-03-20] MEDS: FUROSEMIDE 40MG TABLET PO SCH ×2 (09:46→18:05)
[2022-03-20] MEDS ORDERED: CEFTRIAXONE 1 G PREMIX 50 ML IV SCH (10:45)
[2022-03-20] MEDS ORDERED: AZITHROMYCIN 500 MG TABLET PO NR (10:45)
[2022-03-20] MEDS: CEFTRIAXONE 1,000 MG in DEXTROSE 5% WATER 50 ML IV SCH (13:41)
[2022-03-20] MEDS: ALBUTEROL 6.7GM HFA INHALER ORI SCH ×2 (14:35→18:00)
[2022-03-20] MEDS: EPOETIN ALFA-EPBX 4,000 UNIT/ML VIAL SUBCUT SCH (22:56)
[2022-03-21] VITALS (17 sets, daily range): BP systolic 92–119; BP diastolic 44–68
[2022-03-21] MEDS: ALBUTEROL 6.7GM HFA INHALER ORI SCH ×4 (00:02→18:00)
[2022-03-21] MEDS: GUAIFENESIN 200MG/10ML SUGAR FREE UDC PO PRN (00:09)
[2022-03-21] MEDS ORDERED: IRON SUCROSE COMPLEX 100 MG/5 ML ML IV NR (00:30)
[2022-03-21] MEDS ORDERED: EPOETIN ALFA-EPBX 4,000 UNIT/ML VIAL SUBCUT NR (00:30)
[2022-03-21 07:35] LABS: BASOPHILS % 0.9 % (0.0-2.0); EOSINOPHILS % 0.9 % (0.0-5.0); LYMPHOCYTES % 33.9 % (20.0-50.0); MEAN CORPUSCULAR HEMOGLOBIN 29.5 pg (28.0-32.0); MEAN CORPUSCULAR VOLUME 89.2 fL (81.0-99.0); MONOCYTES % 10.3 % (2.0-8.0); PLATELET 234 x1000/uL (130-400); RED BLOOD CELL COUNT 2.36 mill/uL (4.2-5.4); RED CELL DISTRIBUTION WIDTH 16.9 % (11.6-14.6)
[2022-03-21] MEDS: AZITHROMYCIN 250 MG TABLET PO SCH (08:47)
[2022-03-21] MEDS: GUAIFENESIN 600MG ER TABLET PO SCH ×2 (08:47→21:04)
[2022-03-21] MEDS: PANTOPRAZOLE 40MG DR TABLET PO SCH (08:47)
[2022-03-21] MEDS: FUROSEMIDE 40MG TABLET PO SCH ×2 (08:58→18:26)
[2022-03-21] MEDS: ONDANSETRON HCL 4MG/2ML INJ IV PRN (10:25)
[2022-03-21] MEDS: CEFTRIAXONE 1,000 MG in DEXTROSE 5% WATER 50 ML IV SCH (12:22)
[2022-03-21] MEDS: EPOETIN ALFA-EPBX 4,000 UNIT/ML VIAL SUBCUT SCH (21:00)
[2022-03-22] VITALS: BP 96/54
[2022-03-22] MEDS: ALBUTEROL 6.7GM HFA INHALER ORI SCH ×4 (00:40→18:56)
[2022-03-22 04:00] VITALS: BP 126/58
[2022-03-22 07:18] LABS: BASOPHILS % 1.1 % (0.0-2.0); EOSINOPHILS % 1.5 % (0.0-5.0); LYMPHOCYTES % 35.7 % (20.0-50.0); MEAN CORPUSCULAR HEMOGLOBIN 30.1 pg (28.0-32.0); MEAN CORPUSCULAR VOLUME 87.3 fL (81.0-99.0); MONOCYTES % 10.9 % (2.0-8.0); NEUTROPHILS % 50.8 % (40.0-76.0); PLATELET 216 x1000/uL (130-400); RED BLOOD CELL COUNT 2.27 mill/uL (4.2-5.4)
[2022-03-22 08:00] VITALS: BP 106/60
[2022-03-22 08:36] LABS: HEMATOCRIT. 19.8 % (36.0-48.0); HEMOGLOBIN. 6.8 g/dL (12.0-16.0)
[2022-03-22] MEDS ORDERED: EPOETIN ALFA-EPBX 4,000 UNIT/ML VIAL SUBCUT NR (09:00)
[2022-03-22] MEDS: ONDANSETRON HCL 4MG/2ML INJ IV PRN (09:35)
[2022-03-22] MEDS: GUAIFENESIN 600MG ER TABLET PO SCH ×2 (09:35→20:58)
[2022-03-22] MEDS: FUROSEMIDE 40MG TABLET PO SCH ×2 (09:35→17:15)
[2022-03-22] MEDS: AZITHROMYCIN 250 MG TABLET PO SCH (09:35)
[2022-03-22] MEDS: PANTOPRAZOLE 40MG DR TABLET PO SCH (09:35)
[2022-03-22] MEDS: IRON SUCROSE COMPLEX 100 MG/5 ML ML IV NR (10:59)
[2022-03-22 12:00] VITALS: BP 97/52
[2022-03-22 13:07] LABS: CHLORIDE 97 mEq/L (98-107)
[2022-03-22] MEDS: CEFTRIAXONE 1,000 MG in DEXTROSE 5% WATER 50 ML IV SCH (13:28)
[2022-03-22 16:00] VITALS: BP 110/52
[2022-03-22 20:00] VITALS: BP 117/57
[2022-03-22] MEDS: EPOETIN ALFA-EPBX 4,000 UNIT/ML VIAL SUBCUT SCH (20:58)
[2022-03-22] MEDS ORDERED: EPOETIN ALFA-EPBX 4,000 UNIT/ML VIAL SUBCUT SCH (21:00)
[2022-03-23] VITALS (11 sets, daily range): BP systolic 99–127; BP diastolic 48–79
[2022-03-23] MEDS: ALBUTEROL 6.7GM HFA INHALER ORI SCH ×4 (06:00→11:39)
[2022-03-23 07:51] LABS: BASOPHILS % 0.8 % (0.0-2.0); EOSINOPHILS % 1.9 % (0.0-5.0); MEAN CORPUSCULAR HEMOGLOBIN 29.3 pg (28.0-32.0); MEAN CORPUSCULAR VOLUME 88.4 fL (81.0-99.0); MEAN PLATELET VOLUME 8.4 fl (7.4-10.4); MONOCYTES % 9.5 % (2.0-8.0); NEUTROPHILS % 55.8 % (40.0-76.0); PLATELET 273 x1000/uL (130-400); RED BLOOD CELL COUNT 2.31 mill/uL (4.2-5.4); RED CELL DISTRIBUTION WIDTH 16.7 % (11.6-14.6)
[2022-03-23] MEDS: PANTOPRAZOLE 40MG DR TABLET PO SCH (09:13)
[2022-03-23] MEDS: FUROSEMIDE 40MG TABLET PO SCH (09:13)
[2022-03-23] MEDS: AZITHROMYCIN 250 MG TABLET PO SCH (09:13)
[2022-03-23] MEDS: GUAIFENESIN 600MG ER TABLET PO SCH (09:13)
[2022-03-23 09:27] LABS: HEMATOCRIT. 20.4 % (36.0-48.0); HEMOGLOBIN. 6.8 g/dL (12.0-16.0)
[2022-03-23] MEDS: IRON SUCROSE COMPLEX 100 MG/5 ML ML IV NR (10:51)
[2022-03-23] MEDS: CEFTRIAXONE 1,000 MG in DEXTROSE 5% WATER 50 ML IV SCH (11:31)
[2022-03-23] MEDS ORDERED: ALBU6.7H3 INH (13:06)
[2022-03-23] MEDS ORDERED: EPOETIN ALFA-EPBX 4,000 UNIT/ML VIAL SUBCUT SCH (16:00)
[2022-03-23] MEDS ORDERED: EPOETIN ALFA-EPBX 4,000 UNIT/ML VIAL SUBCUT NR (21:00)
[2022-03-24 08:56] LABS: CHLORIDE 99 mEq/L (98-107)
== END 2022-03-23 19:08 | disposition home or self-care (01) | DRG 720 ==
LOC: ER 11:32 → 7EST 15:06 → EDBEDREQTM 15:09 → EDBEDREQ 15:09 → SUPCPDRO 18:00
PROVIDERS: ADMIT Internal Medicine; ATTEND Internal Medicine
PROC: 5A1D70Z Performance of Urinary Filtration, Intermittent, Less than 6 Hours Per Day (ICD-10-PCS; 2022-03-18)
PROC: 30233N1 Transfusion of Nonautologous Red Blood Cells into Peripheral Vein, Percutaneous Approach (ICD-10-PCS; principal; 2022-03-19)
PROC: 5A1D70Z Performance of Urinary Filtration, Intermittent, Less than 6 Hours Per Day (ICD-10-PCS; 2022-03-19)
PROC: 5A1D70Z Performance of Urinary Filtration, Intermittent, Less than 6 Hours Per Day (ICD-10-PCS; 2022-03-21)
PROC: 5A1D70Z Performance of Urinary Filtration, Intermittent, Less than 6 Hours Per Day (ICD-10-PCS; 2022-03-23)
DX: A41.89 Other specified sepsis (principal); U07.1 COVID-19; I13.2 Hypertensive heart and chronic kidney disease with heart failure and with stage 5 chronic kidney disease, or end stage renal disease; E46 Unspecified protein-calorie malnutrition; I31.39 Other pericardial effusion (noninflammatory); D63.8 Anemia in other chronic diseases classified elsewhere; E87.1 Hypo-osmolality and hyponatremia; E88.09 Other disorders of plasma-protein metabolism, not elsewhere classified; I27.20 Pulmonary hypertension, unspecified; I50.9 Heart failure, unspecified; E66.01 Morbid (severe) obesity due to excess calories; N18.6 End stage renal disease; D64.89 Other specified anemias; E78.00 Pure hypercholesterolemia, unspecified; Z28.310 Unvaccinated for COVID-19; Z99.2 Dependence on renal dialysis; Z91.15 Patient's noncompliance with renal dialysis; Z79.899 Other long term (current) drug therapy; Z98.891 History of uterine scar from previous surgery; Z68.31 Body mass index [BMI] 31.0-31.9, adult
CPT/HCPCS: 36415; 71045; 80048; 80053; 80061; 80320; 82728; 83036; 83735; 83880; 84100; 84145; 84439; 84443; 84481; 84484; 85025; 85379; 86705; 86709; 86803; 86850; 86900; 86920; 87340; 87426; 90935; 93005; 93970; 97166; 99291; A6261; C1893; C9803; J0696; J0885; J1650; J2405; J7060; P9016; G0480

== ENCOUNTER 2022-06-02 15:46 | Inpatient (IN) | payer MEDICAID ==
[~2022-06-02] VITALS: Ht 165.1 cm; Wt 88.5 kg
[~2022-06-02 15:46] MED LIST changes: +ALBU6.7H3 INH
[2022-06-03] VITALS (14 sets, daily range): BP systolic 93–118; BP diastolic 43–64
[2022-06-03] MEDS ORDERED: ACETAMINOPHEN 325MG TABLET PO STA (05:31)
[2022-06-03 08:29] LABS: EOSINOPHILS % 0.9 % (0.0-5.0); LYMPHOCYTES % 24.5 % (20.0-50.0); MEAN CORPUSCULAR HEMOGLOBIN 27.9 pg (28.0-32.0); MEAN CORPUSCULAR VOLUME 85.6 fL (81.0-99.0); MONOCYTES % 11.6 % (2.0-8.0); PLATELET 369 x1000/uL (130-400); RED BLOOD CELL COUNT 2.11 mill/uL (4.2-5.4); RED CELL DISTRIBUTION WIDTH 17.6 % (11.6-14.6)
[2022-06-03 08:38] LABS: CHLORIDE 93 mEq/L (98-107)
[2022-06-03 08:47] LABS: HEMATOCRIT. 18.1 % (36.0-48.0); HEMOGLOBIN. 5.9 g/dL (12.0-16.0)
[2022-06-03] MEDS ORDERED: HYDROCODONE/ACETAMINOPHEN 5/325MG TABLET PO NR (13:00)
[2022-06-03] MEDS ORDERED: ONDANSETRON HCL 4MG/2ML INJ IV PRN (13:00)
[2022-06-03] MEDS ORDERED: ACETAMINOPHEN 325MG TABLET PO PRN (13:00)
[2022-06-03] MEDS ORDERED: NALOXONE HCL 0.4MG/ML VIAL IV PRN (14:45)
[2022-06-03] MEDS ORDERED: SEVE800T8 PO (16:29)
[2022-06-03] MEDS ORDERED: NEPVIT PO (16:29)
[2022-06-03] MEDS ORDERED: CINA30 PO (16:29)
[2022-06-03 22:07] LABS: HEPATITIS B SURFACE ANTIGEN NEGATIVE
[2022-06-03] MEDS: HYDROCODONE/ACETAMINOPHEN 5/325MG TABLET PO PRN (22:09)
[2022-06-03 23:40] LABS: HEMATOCRIT 22.6 % (36.0-48.0); HEMOGLOBIN 7.4 g/dL (12.0-16.0)
[2022-06-04] VITALS: BP 162/93
[2022-06-04] MEDS: HYDROCODONE/ACETAMINOPHEN 5/325MG TABLET PO PRN ×2 (03:41→12:50)
[2022-06-04 04:00] VITALS: BP 99/49
[2022-06-04 06:03] LABS: HEMATOCRIT. 21.2 % (36.0-48.0); HEMOGLOBIN. 7.1 g/dL (12.0-16.0); MEAN CORPUSCULAR HEMOGLOBIN 28.9 pg (28.0-32.0); MEAN CORPUSCULAR VOLUME 85.8 fL (81.0-99.0); PLATELET 321 x1000/uL (130-400); RED BLOOD CELL COUNT 2.48 mill/uL (4.2-5.4); RED CELL DISTRIBUTION WIDTH 17.1 % (11.6-14.6)
[2022-06-04 08:00] VITALS: BP 101/59
[2022-06-04 08:27] LABS: NUCLEATED RED BLOOD CELLS 1 /100 WBC
[2022-06-04 08:28] LABS: PLATELET ESTIMATE NORMAL
[2022-06-04] MEDS ORDERED: IOHEXOL-300 100 ML BOTTLE ONE (10:40)
[2022-06-04 12:00] VITALS: BP 109/61
[2022-06-04 16:09] VITALS: BP 112/65
== END 2022-06-04 16:45 | disposition home or self-care (01) | DRG 194 ==
LOC: ER 15:46 → 7EST 06-03 09:20 → EDBEDREQ 06-03 09:22 → EDBEDREQTM 06-03 09:22 → EDBEDREQSVC 06-03 09:22 → EDBEDREQ 06-03 09:23
PROVIDERS: ADMIT Internal Medicine; ATTEND Internal Medicine
PROC: 30233N1 Transfusion of Nonautologous Red Blood Cells into Peripheral Vein, Percutaneous Approach (ICD-10-PCS; principal; 2022-06-03)
PROC: 5A1D70Z Performance of Urinary Filtration, Intermittent, Less than 6 Hours Per Day (ICD-10-PCS; 2022-06-03)
DX: I13.2 Hypertensive heart and chronic kidney disease with heart failure and with stage 5 chronic kidney disease, or end stage renal disease (principal); E43 Unspecified severe protein-calorie malnutrition; N18.6 End stage renal disease; D63.1 Anemia in chronic kidney disease; E87.1 Hypo-osmolality and hyponatremia; E66.01 Morbid (severe) obesity due to excess calories; Z20.822 Contact with and (suspected) exposure to COVID-19; E78.00 Pure hypercholesterolemia, unspecified; I50.9 Heart failure, unspecified; M19.90 Unspecified osteoarthritis, unspecified site; Z99.2 Dependence on renal dialysis; Z98.891 History of uterine scar from previous surgery; Z79.899 Other long term (current) drug therapy; Z68.32 Body mass index [BMI] 32.0-32.9, adult; E83.52 Hypercalcemia
CPT/HCPCS: 36415; 71045; 71260; 73590; 74177; 80048; 80053; 83605; 83880; 84145; 85014; 85018; 85025; 86705; 86709; 86803; 86850; 86900; 86920; 87340; 87426; 90935; 93970; 97162; 99291; C9803; P9016; Q9967

== ENCOUNTER 2022-06-27 20:45 | Inpatient (IN) | payer MEDICAID ==
[~2022-06-27] VITALS: Ht 165.1 cm; Wt 88.5 kg
[~2022-06-27 20:45] MED LIST changes: +CINA30 PO; +NEPVIT PO; +SEVE800T8 PO
[2022-06-28] VITALS (8 sets, daily range): BP systolic 96–126; BP diastolic 46–64
[2022-06-28 00:41] LABS: CHLORIDE 95 mEq/L (98-107)
[2022-06-28] MEDS ORDERED: MORPHINE SULFATE 4 MG/ML CPJ (NOT FOR IM USE) IV STA (00:48)
[2022-06-28] MEDS ORDERED: ONDANSETRON HCL 4MG/2ML INJ IV STA (00:48)
[2022-06-28] MEDS ORDERED: IOHEXOL-350 100 ML BOTTLE ONE (01:42)
[2022-06-28 03:16] LABS: BASOPHILS % 0.5 % (0.0-2.0); EOSINOPHILS % 0.4 % (0.0-5.0); LYMPHOCYTES % 24.9 % (20.0-50.0); MEAN CORPUSCULAR HEMOGLOBIN 27.5 pg (28.0-32.0); MEAN PLATELET VOLUME 7.9 fl (7.4-10.4); MONOCYTES % 14.4 % (2.0-8.0); NEUTROPHILS % 59.8 % (40.0-76.0); PLATELET 303 x1000/uL (130-400); RED BLOOD CELL COUNT 2.43 mill/uL (4.2-5.4); RED CELL DISTRIBUTION WIDTH 18.6 % (11.6-14.6)
[2022-06-28 03:35] LABS: HEMOGLOBIN. 6.7 g/dL (12.0-16.0)
[2022-06-28 03:36] LABS: HEMATOCRIT. 20.6 % (36.0-48.0)
[2022-06-28] MEDS ORDERED: VANCOMYCIN 1G PREMIX 200 ML IV NR (05:00)
[2022-06-28] MEDS ORDERED: PIPERACILLIN/TAZ 3.375G PREMIX 50 ML IV NR (05:00)
[2022-06-28] MEDS ORDERED: MAGNESIUM/ALUMINUM HYDROXIDE/SIMETHICONE 30ML UDC PO PRN (15:00)
[2022-06-28] MEDS ORDERED: CLONIDINE 0.1MG TABLET PO PRN (15:00)
[2022-06-28] MEDS ORDERED: IPRATROPIUM/ALBUTEROL 0.5-3(2.5)MG/3ML NEB HHN PRN (15:00)
[2022-06-28] MEDS ORDERED: ENOXAPARIN 40MG/0.4ML SYR SUBCUT SCH (15:00)
[2022-06-28] MEDS ORDERED: HYDROCODONE/ACETAMINOPHEN 5/325MG TABLET PO PRN (15:00)
[2022-06-28] MEDS ORDERED: NA PHOS,M-B/NA PHOS,DI-BA ENEMA 118ML PR PRN (15:00)
[2022-06-28] MEDS ORDERED: ONDANSETRON HCL 4MG/2ML INJ IV PRN (15:00)
[2022-06-28] MEDS ORDERED: ACETAMINOPHEN 325MG TABLET PO PRN ×2 (15:00)
[2022-06-28] MEDS: HYDROCODONE/ACETAMINOPHEN 7.5/325MG TABLET PO PRN ×2 (16:51→23:49)
[2022-06-28 16:58] LABS: T4 FREE 1.21 ng/dL (0.76-1.46)
[2022-06-28] MEDS ORDERED: ATORVASTATIN CALCIUM 40MG TABLET PO SCH (17:00)
[2022-06-28] MEDS ORDERED: NALOXONE HCL 0.4MG/ML VIAL IV PRN (17:00)
[2022-06-28] MEDS ORDERED: FUROSEMIDE 40MG TABLET PO SCH (17:00)
[2022-06-28] MEDS: DOCUSATE SODIUM 100MG CAPSULE PO SCH (17:52)
[2022-06-28] MEDS: FERROUS SULFATE 325MG TABLET PO SCH (17:52)
[2022-06-28] MEDS: CINACALCET HCL 30MG TABLET PO SCH (17:52)
[2022-06-28] MEDS ORDERED: POTASSIUM CHLORIDE 20MEQ TABLET SR PO NR ×2 (18:00→21:00)
[2022-06-28 20:09] LABS: HEMOGLOBIN 6.4 g/dL (12.0-16.0)
[2022-06-28 20:10] LABS: HEMATOCRIT 19.5 % (36.0-48.0)
[2022-06-28] MEDS ORDERED: IPRATROPIUM BROMIDE (0.02%) 0.5MG/2.5ML NEB HHN PRN (20:15)
[2022-06-28] MEDS ORDERED: ALBUTEROL (0.083%) 2.5MG/3ML NEB HHN PRN (20:15)
[2022-06-28] MEDS ORDERED: FAMOTIDINE 20MG TABLET PO SCH (21:00)
[2022-06-29] VITALS (14 sets, daily range): BP systolic 95–114; BP diastolic 15–64
[2022-06-29 01:57] LABS: HEMATOCRIT 24.5 % (36.0-48.0); HEMOGLOBIN 7.9 g/dL (12.0-16.0)
[2022-06-29 07:45] LABS: HEMOGLOBIN. 7.4 g/dL (12.0-16.0); MEAN CORPUSCULAR HEMOGLOBIN 28.9 pg (28.0-32.0); MEAN CORPUSCULAR VOLUME 85.9 fL (81.0-99.0); MEAN PLATELET VOLUME 7.4 fl (7.4-10.4); PLATELET 298 x1000/uL (130-400); RED BLOOD CELL COUNT 2.57 mill/uL (4.2-5.4); RED CELL DISTRIBUTION WIDTH 17.7 % (11.6-14.6)
[2022-06-29] MEDS: CINACALCET HCL 30MG TABLET PO SCH (08:58)
[2022-06-29] MEDS: SEVELAMER CARBONATE 800 MG TABLET PO SCH ×2 (08:59→13:30)
[2022-06-29] MEDS: FERROUS SULFATE 325MG TABLET PO SCH (08:59)
[2022-06-29] MEDS ORDERED: METOPROLOL SUCCINATE 50MG ER TABLET PO SCH (09:00)
[2022-06-29] MEDS ORDERED: IRON SUCROSE COMPLEX 100 MG/5 ML ML IV SCH (09:00)
[2022-06-29] MEDS ORDERED: EPOETIN ALFA-EPBX 4,000 UNIT/ML VIAL SUBCUT SCH (09:00)
[2022-06-29] MEDS: DOCUSATE SODIUM 100MG CAPSULE PO SCH ×2 (09:02→17:43)
[2022-06-29] MEDS: HYDROCODONE/ACETAMINOPHEN 7.5/325MG TABLET PO PRN (09:07)
[2022-06-29] MEDS ORDERED: LIDOCAINE HCL 1% 30ML VIAL (10MG/ML) ONE (11:14)
[2022-06-29] MEDS ORDERED: SODIUM BICARBONATE 4% (2.4MEQ) 5ML VIAL IV ONE (11:15)
[2022-06-29 16:50] LABS: HEPATITIS B SURFACE ANTIGEN NEGATIVE
[2022-06-29 20:23] LABS: PLATELET ESTIMATE NORMAL
[2022-06-29] MEDS ORDERED: EPOETIN ALFA 3000UNITS/ML VIAL SUBCUT SCH (21:00)
[2022-06-30] MEDS ORDERED: SEVELAMER CARBONATE 800 MG TABLET PO SCH (07:10)
[2022-06-30 14:09] LABS: KAPPA/LAMBDA RATIO 0.02 (0.26-1.65); LAMBDA LT CHAINS FREE SERUM 6594.3 mg/L (5.7-26.3)
[2022-06-30 20:21] LABS: FOLIC ACID (FOLATE) SERUM 13.8 ng/mL (>5.38)
== END 2022-06-29 18:21 | disposition home or self-care (01) | DRG 691 ==
LOC: ER 20:45 → 7EST 06-28 16:30
PROVIDERS: ADMIT Internal Medicine; ATTEND Internal Medicine
PROC: 5A1D70Z Performance of Urinary Filtration, Intermittent, Less than 6 Hours Per Day (ICD-10-PCS; principal; 2022-06-28)
PROC: 30233N1 Transfusion of Nonautologous Red Blood Cells into Peripheral Vein, Percutaneous Approach (ICD-10-PCS; 2022-06-28)
PROC: 5A0935A Assistance with Respiratory Ventilation, Less than 24 Consecutive Hours, High Flow/Velocity Cannula (ICD-10-PCS; 2022-06-28)
PROC: 0S9C3ZZ Drainage of Right Knee Joint, Percutaneous Approach (ICD-10-PCS; 2022-06-29)
DX: C90.00 Multiple myeloma not having achieved remission (principal); I31.39 Other pericardial effusion (noninflammatory); J18.9 Pneumonia, unspecified organism; C79.9 Secondary malignant neoplasm of unspecified site; I13.2 Hypertensive heart and chronic kidney disease with heart failure and with stage 5 chronic kidney disease, or end stage renal disease; I27.20 Pulmonary hypertension, unspecified; D63.8 Anemia in other chronic diseases classified elsewhere; E87.1 Hypo-osmolality and hyponatremia; N18.6 End stage renal disease; E11.22 Type 2 diabetes mellitus with diabetic chronic kidney disease; I50.9 Heart failure, unspecified; M25.469 Effusion, unspecified knee; E88.09 Other disorders of plasma-protein metabolism, not elsewhere classified; E03.8 Other specified hypothyroidism; M25.511 Pain in right shoulder; M25.561 Pain in right knee; M25.562 Pain in left knee; M54.9 Dorsalgia, unspecified; M71.22 Synovial cyst of popliteal space [Baker], left knee; Z99.2 Dependence on renal dialysis; M89.8X9 Other specified disorders of bone, unspecified site; Z20.822 Contact with and (suspected) exposure to COVID-19; Z68.32 Body mass index [BMI] 32.0-32.9, adult; E87.6 Hypokalemia; M48.54XA Collapsed vertebra, not elsewhere classified, thoracic region, initial encounter for fracture; E66.01 Morbid (severe) obesity due to excess calories; E78.00 Pure hypercholesterolemia, unspecified; E83.52 Hypercalcemia; F17.200 Nicotine dependence, unspecified, uncomplicated; Z98.891 History of uterine scar from previous surgery
CPT/HCPCS: 20610; 20611; 36415; 71045; 72141; 72146; 72148; 73030; 73562; 75635; 76881; 80048; 80053; 80061; 82607; 82746; 82784; 83605; 83880; 83883; 84439; 84443; 85014; 85018; 85025; 85379; 86334; 86705; 86709; 86803; 86850; 86900; 86920; 87340; 87426; 87804; 90935; 93005; 93306; 93970; 93971; 99291; C9803; J2270; J2405; J2543; J3370; J3490; P9016; Q9967

== ENCOUNTER 2022-09-08 09:55 | Emergency (ER) | payer BC, MEDICAID ==
[~2022-09-08] VITALS: Ht 167.6 cm; Wt 118.0 kg
[~2022-09-08 09:55] MED LIST changes: +CALC0.253 PO; +CALC667T2 PO; +ONDA4TAB11 SL
[2022-09-08 10:51] LABS: BASOPHILS % 0.1 % (0.0-2.0); HEMATOCRIT. 21.4 % (36.0-48.0); HEMOGLOBIN. 7.1 g/dL (12.0-16.0); LYMPHOCYTES % 17.8 % (20.0-50.0); MEAN CORPUSCULAR HEMOGLOBIN 30.6 pg (28.0-32.0); MEAN CORPUSCULAR VOLUME 92.4 fL (81.0-99.0); MEAN PLATELET VOLUME 8.4 fl (7.4-10.4); MONOCYTES % 9.6 % (2.0-8.0); NEUTROPHILS % 72.5 % (40.0-76.0); PLATELET 298 x1000/uL (130-400); RED BLOOD CELL COUNT 2.31 mill/uL (4.2-5.4); RED CELL DISTRIBUTION WIDTH 17.8 % (11.6-14.6)
[2022-09-08 10:57] LABS: CHLORIDE 100 mEq/L (98-107)
[2022-09-08 21:01] VITALS: BP 127/46
== END 2022-09-08 21:16 | disposition home or self-care (01) ==
LOC: ER 10:02
DX: I50.9 Heart failure, unspecified (principal); I51.7 Cardiomegaly; D64.9 Anemia, unspecified; R53.1 Weakness; Z85.9 Personal history of malignant neoplasm, unspecified; E78.00 Pure hypercholesterolemia, unspecified; Z79.899 Other long term (current) drug therapy
CPT/HCPCS: 36415; 71045; 80053; 83880; 84484; 85025; 99285

== ENCOUNTER 2022-11-24 16:11 | Inpatient (IN) | payer MEDICAID ==
[~2022-11-24] VITALS: Ht 157.5 cm; Wt 81.4 kg
[~2022-11-24 16:11] MED LIST changes: +DEXA4TAB PO; +DOCU250C14 PO; +MIDO5TAB4 MT; +MORP15TA54 PO; -ONDA4TAB11 SL; -ONDA4TAB5 MT
[2022-11-24] MEDS ORDERED: ACETAMINOPHEN 325MG TABLET PO STA (16:46)
[2022-11-24] MEDS ORDERED: ONDANSETRON HCL 4MG/2ML INJ IV STA (16:46)
[2022-11-24 17:59] LABS: BASOPHILS % 0.9 % (0.0-2.0); CHLORIDE 98 mEq/L (98-107); HEMATOCRIT. 36.5 % (36.0-48.0); HEMOGLOBIN. 11.7 g/dL (12.0-16.0); INDEX HEMOLYSI 1 (1-3); INDEX ICTERIC 1 (1-4); INDEX LIPEMIC 1 (1-3); LYMPHOCYTES % 14.4 % (20.0-50.0); MEAN CORPUSCULAR HEMOGLOBIN 28.8 pg (28.0-32.0); MEAN CORPUSCULAR VOLUME 89.8 fL (81.0-99.0); MEAN PLATELET VOLUME 9.5 fl (7.4-10.4); MONOCYTES % 16.2 % (2.0-8.0); NEUTROPHILS % 68.5 % (40.0-76.0); PLATELET 168 x1000/uL (130-400); POTASSIUM 3.3 mEq/L (3.5-5.1); RED BLOOD CELL COUNT 4.06 mill/uL (4.2-5.4); SODIUM 136 mEq/L (136-145); WHITE BLOOD COUNT 5.3 x1000/uL (4.5-11.0)
[2022-11-24 18:00] LABS: HCG SCREEN NEGATIVE
[2022-11-24 18:05] LABS: DIFFERENTIAL COMMENT 1
[2022-11-24 18:06] LABS: ALANINE AMINOTRANSFERASE 8 IU/L (13-61); ALBUMIN 1.9 g/dL (3.4-5.0); ASPARTATE AMINOTRANSFERASE 28 IU/L (15-37); BILIRUBIN TOTAL 0.7 mg/dL (0.1-1.0); CALCIUM 8.5 mg/dL (8.5-10.1); CARBON DIOXIDE 30 mEq/L (21-32); CREATININE 3.5 mg/dL (0.6-1.3); GLUCOSE 106 mg/dL (70-105); UREA NITROGEN BLOOD 22 mg/dL (7-21)
[2022-11-25] VITALS (14 sets, daily range): BP systolic 78–100; BP diastolic 49–61; PULSE 66–80; RESP 16–20; TEMP 97.2–99; O2SAT 98
[2022-11-25] MEDS ORDERED: PIPERACILLIN/TAZ 3.375G PREMIX 50 ML IV ONE
[2022-11-25] MEDS ORDERED: VANCOMYCIN 1G PREMIX 200 ML IV ONE
[2022-11-25] MEDS ORDERED: SODIUM CHLORIDE 0.9% 500 ML IV NR ×2 (04:15→04:30)
[2022-11-25] MEDS ORDERED: HYDROCODONE/ACETAMINOPHEN 5/325MG TABLET PO PRN (04:15)
[2022-11-25] MEDS ORDERED: ONDANSETRON HCL 4MG/2ML INJ IV PRN (04:15)
[2022-11-25] MEDS ORDERED: NALOXONE HCL 0.4MG/ML VIAL IV PRN (04:30)
[2022-11-25] MEDS ORDERED: PANTOPRAZOLE 40MG DR TABLET PO SCH (07:10)
[2022-11-25] MEDS ORDERED: *PATIENT'S OWN MEDICATION STORAGE XX SCH (07:30)
[2022-11-25 10:19] LABS: HEMATOCRIT. 30.1 % (36.0-48.0); HEMOGLOBIN. 9.9 g/dL (12.0-16.0); MEAN CORPUSCULAR HEMOGLOBIN 28.9 pg (28.0-32.0); MEAN CORPUSCULAR HGB CONC 32.7 g/dL (31.0-37.0); MEAN CORPUSCULAR VOLUME 88.4 fL (81.0-99.0); MEAN PLATELET VOLUME 8.4 fl (7.4-10.4); PLATELET 125 x1000/uL (130-400); RED BLOOD CELL COUNT 3.41 mill/uL (4.2-5.4); RED CELL DISTRIBUTION WIDTH 18.5 % (11.6-14.6); WHITE BLOOD COUNT 4.6 x1000/uL (4.5-11.0)
[2022-11-25 10:32] LABS: DIFFERENTIAL COMMENT 1
[2022-11-25 10:52] LABS: CALCIUM 8.2 mg/dL (8.5-10.1)
[2022-11-25 11:00] LABS: CREATININE 3.4 mg/dL (0.6-1.3); PHOSPHORUS 2.7 mg/dL (2.5-4.9)
[2022-11-25 11:43] LABS: POTASSIUM 2.7 mEq/L (3.5-5.1)
[2022-11-25] MEDS: POTASSIUM CHLORIDE 20MEQ TABLET SR PO SCH ×2 (12:33→17:04)
[2022-11-25] MEDS: MIDODRINE HCL 5MG TABLET PO SCH ×2 (12:34→17:04)
[2022-11-25 16:37] LABS: NUCLEATED RED BLOOD CELLS 8 /100 WBC
[2022-11-25 16:38] LABS: ANISOCYTOSIS 2+; PLATELET ESTIMATE SLIGHTLY DECREASED; TARGET CELLS 1+
== END 2022-11-25 18:40 | disposition home or self-care (01) | DRG 425 ==
LOC: ER 16:14 → 8WST 23:50 → EDBEDREQ 23:56 → EDBEDREQTM 23:56 → EDBEDREQSVC 23:56
PROVIDERS: ADMIT Internal Medicine; ATTEND Internal Medicine
PROC: 5A1D70Z Performance of Urinary Filtration, Intermittent, Less than 6 Hours Per Day (ICD-10-PCS; principal; 2022-11-24)
DX: E87.6 Hypokalemia (principal); E43 Unspecified severe protein-calorie malnutrition; N18.6 End stage renal disease; E88.09 Other disorders of plasma-protein metabolism, not elsewhere classified; E87.70 Fluid overload, unspecified; K59.00 Constipation, unspecified; D64.9 Anemia, unspecified; I50.9 Heart failure, unspecified; Z99.2 Dependence on renal dialysis; E78.00 Pure hypercholesterolemia, unspecified; J44.9 Chronic obstructive pulmonary disease, unspecified; Z98.891 History of uterine scar from previous surgery
CPT/HCPCS: 36415; 74177; 80048; 80053; 83605; 84100; 84703; 85025; 90935; 99285; C1893; J2405; J2543; J3370

== ENCOUNTER 2023-04-28 20:39 | Emergency (ER) | payer BC, MEDICAID ==
[~2023-04-28] VITALS: Ht 167.6 cm; Wt 68.5 kg
[~2023-04-28 20:39] MED LIST changes: +APIX5TAB PO; +METR-167 PO; -TOPXL5 PO
[2023-04-28 22:00] VITALS: BP 105/64; PULSE 80; RESP 18; TEMP 99.4; O2SAT 95
[2023-04-28 23:03] LABS: HEMATOCRIT. 34.5 % (36.0-48.0); HEMOGLOBIN. 11.4 g/dL (12.0-16.0); MEAN CORPUSCULAR HEMOGLOBIN 29.5 pg (28.0-32.0); MEAN CORPUSCULAR HGB CONC 33.1 g/dL (31.0-37.0); MEAN CORPUSCULAR VOLUME 89.1 fL (81.0-99.0); PLATELET 167 x1000/uL (130-400); RED BLOOD CELL COUNT 3.88 mill/uL (4.2-5.4); RED CELL DISTRIBUTION WIDTH 16.2 % (11.6-14.6); WHITE BLOOD COUNT 3.3 x1000/uL (4.5-11.0)
[2023-04-28 23:09] LABS: DIFFERENTIAL COMMENT 1
[2023-04-28 23:17] LABS: ALANINE AMINOTRANSFERASE < 7 IU/L (10-49); ALBUMIN 2.6 g/dL (3.2-4.8); ASPARTATE AMINOTRANSFERASE 17 IU/L (<34); BILIRUBIN TOTAL 0.3 mg/dL (0.1-1.0); CALCIUM 8.2 mg/dL (8.7-10.4); CARBON DIOXIDE 31 mEq/L (21-32); CHLORIDE 104 mEq/L (98-107); CREATININE 3.3 mg/dL (0.6-1.0); GLUCOSE 94 mg/dL (70-105); POTASSIUM 4.2 mEq/L (3.5-5.1); PROTEIN TOTAL 6.2 g/dL (6.0-8.3); SODIUM 138 mEq/L (136-145); UREA NITROGEN BLOOD 16 mg/dL (9-23)
[2023-04-28 23:48] LABS: ANISOCYTOSIS 1+; PLATELET ESTIMATE NORMAL
[2023-04-29] MEDS ORDERED: HYDR-4001 MT (01:48)
== END 2023-04-29 07:22 | disposition home or self-care (01) ==
LOC: ER 20:39
DX: E11.22 Type 2 diabetes mellitus with diabetic chronic kidney disease (principal); N18.9 Chronic kidney disease, unspecified; C90.00 Multiple myeloma not having achieved remission; J44.1 Chronic obstructive pulmonary disease with (acute) exacerbation; E78.00 Pure hypercholesterolemia, unspecified; I50.9 Heart failure, unspecified; Z79.899 Other long term (current) drug therapy; Z98.890 Other specified postprocedural states
CPT/HCPCS: 29105; 36415; 71045; 73070; 73600; 80053; 85025; 93970; 93971; 99284